=== PATIENT | male | born 1960 | race African-American/Black ===

== ENCOUNTER → 2017-03-12 | Outpatient (REF) ==
[2013-05-09 00:27] VITALS: BP 140/80
[~2017-03-12] MED LIST: CIPRO 500MG TA500 MG PO
== END ==
LOC: LAB 09:39
DX: Z85.51 Personal history of malignant neoplasm of bladder (principal); R39.12 Poor urinary stream

== ENCOUNTER → 2017-03-12 | Outpatient (CLI) | payer BC ==
[2013-05-09 00:27] VITALS: BP 140/80
== END ==
LOC: RAD 09:00
DX: R39.12 Poor urinary stream (principal); Z85.51 Personal history of malignant neoplasm of bladder
CPT/HCPCS: Q9967

== ENCOUNTER → 2017-04-03 | Outpatient (REF) ==
[2013-05-09 00:27] VITALS: BP 140/80
== END ==
LOC: LAB 08:03
DX: C67.9 Malignant neoplasm of bladder, unspecified (principal); R39.12 Poor urinary stream

== ENCOUNTER → 2018-04-06 | Outpatient (CLI) | payer BC ==
[2013-05-09 00:27] VITALS: BP 140/80
== END ==
LOC: RAD 08:44
PROVIDERS: Urology
DX: M43.16 Spondylolisthesis, lumbar region (principal); R59.0 Localized enlarged lymph nodes; D13.4 Benign neoplasm of liver; R39.12 Poor urinary stream; Z85.51 Personal history of malignant neoplasm of bladder; Z90.410 Acquired total absence of pancreas; Z98.890 Other specified postprocedural states
CPT/HCPCS: Q9967

== ENCOUNTER → 2020-11-05 | Outpatient (REF) ==
[2013-05-09 00:27] VITALS: BP 140/80
== END ==
LOC: LAB 10:54
DX: R39.12 Poor urinary stream (principal); Z85.51 Personal history of malignant neoplasm of bladder

== ENCOUNTER → 2022-11-04 | Outpatient (CLI) | payer BC | LOC: RAD 07:57 | DX: Z85.51 Personal history of malignant neoplasm of bladder (principal) ==

== ENCOUNTER → 2023-11-06 | Outpatient (CLI) | payer BC | LOC: RAD 10:21 | DX: N28.1 Cyst of kidney, acquired (principal); Z85.51 Personal history of malignant neoplasm of bladder ==

== ENCOUNTER → 2024-05-04 | Day surgery (SDC) | payer BC ==
[~2024-05-04] MED LIST changes: +Balanced Salt Ophth Irrig 15 ML BOTTLE *BULK OP SCH; +Cyclopentolate 2% Ophth Soln 1 BOTTLE *BULK OP SCH; +EPINEPHrine 1 MG/ML (1:1000) 1 ML AMP IR SCH; +Ketorolac 0.5% Ophth Soln 5 ML Bottle *BULK OP SCH; +Midazolam 2 MG/2 ML VIAL IV ONE; +Phenylephrine 10% Ophth Soln 5 ML BOTTLE *BULK OP SCH; +Polymyxin B Sulfate/Trimethoprim Ophth Soln 10 ML BOTTLE *BULK OP SCH; +Povidone Iodine 5% Ophth Soln 30 ML BOTTLE *BULK OP SCH; +Proparacaine 0.5% Ophth Soln 15 ML BOTTLE *BULK OP SCH; +Tropicamide 1% Ophth Soln Bottle *BULK OP SCH; +Trypan Blue 0.06% Ophth Soln 0.5 ML SYRINGE IO ONE
== END | disposition home or self-care (01) ==
LOC: MSO 07:34
DX: H25.813 Combined forms of age-related cataract, bilateral (principal); C67.9 Malignant neoplasm of bladder, unspecified; Z87.891 Personal history of nicotine dependence
CPT/HCPCS: 00142; J0171; J2250; V2632

== ENCOUNTER → 2024-06-02 | Day surgery (SDC) | payer BC | LOC: MSO 07:27 | DX: H25.811 Combined forms of age-related cataract, right eye (principal); Z85.51 Personal history of malignant neoplasm of bladder | CPT/HCPCS: J0171; J2250; V2632 ==